=== PATIENT | male | born 1985 ===

== ENCOUNTER 2017-04-26 20:03 | Emergency (ER) | payer OTHER ==
[2017-04-26 20:08] VITALS: BMI 28.3
[2017-04-26 20:12] VITALS: BP 119/80; PULSE 67; RESP 19; TEMP 98.6; O2SAT 97
[2017-04-26] MEDS ORDERED: Tmp-Smz 800 mg-160 mg DS Tab PO STA (20:19)
--- NOTE | 2017-04-26 20:28 | ED PDOC ---
Arrival/HPI - General Historian: Patient <Martin Clemente - Last Filed: 04/26/17 20:24> <Kirk Spear - Last Filed: 04/26/17 22:29> - General Chief Complaint: Finger,Hand,&Wrist Time Seen by Provider: 04/26/17 20:19 - History of Present Illness Narrative History of Present Illness (Text): 04/26/17 20:24 31 y/o male, no pmh, nkda, c/o rt. hand 2nd digit skin redness and pain x 1 week with more painful today. Pt. stated that the finger is red, admits washing dishes without using the gloves, no numbness or tingling, no difficulty moving or bending the finger, no night sweat, unable to see the pmd due to the limited appointment, no dizziness, no chest pain or shortness of breath, no other medical or psychological complaints. (Martin Clemente) Past Medical History - Provider Review Nursing Documentation Reviewed: Yes - Infectious Disease Hx of Infectious Diseases: None - Tetanus Immunization Tetanus Immunization: Unknown - Past Medical History Past Medical History: No Previous - Cardiac Hx Cardiac Disorders: No - Pulmonary Hx Respiratory Disorders: No - Neurological Hx Neurological Disorder: No - HEENT Hx HEENT Disorder: No - Renal Hx Renal Disorder: No - Endocrine/Metabolic Hx Endocrine Disorders: No - Hematological/Oncological Hx Blood Disorders: No - Integumentary Hx Dermatological Disorder: No - Musculoskeletal/Rheumatological Hx Musculoskeletal Disorders: Yes Hx Back Pain: Yes - Gastrointestinal Hx Gastrointestinal Disorders: No - Genitourinary/Gynecological Hx Genitourinary Disorders: No - Psychiatric Hx Psychophysiologic Disorder: No Hx Depression: No Hx Emotional Abuse: No Hx Physical Abuse: No Hx Substance Use: No - Past Surgical History Past Surgical History: No Previous - Surgical History Other/Comment: epidural shots for pain - Anesthesia Hx Anesthesia: No - Suicidal Assessment Feels Threatened In Home Enviroment: No <Martin Clemente - Last Filed: 04/26/17 20:24> Family/Social History - Physician Review Nursing Documentation Reviewed: Yes Family/Social History: Unknown Family HX Smoking Status: Light Smoker < 10 Cigarettes Daily Hx Alcohol Use: Yes Hx Substance Use: No Hx Substance Use Treatment: No <Martin Clemente - Last Filed: 04/26/17 20:24> Allergies/Home Meds <Martin Clemente - Last Filed: 04/26/17 20:24> <Kirk Spear - Last Filed: 04/26/17 22:29> Allergies/Adverse Reactions: Allergies No Known Allergies Allergy (Verified 04/26/17 20:08) Home Medications: Home Meds Medication Instructions Recorded Confirmed oxyCODONE [oxyCODONE Immediate 15 mg PO TID 04/26/17 04/26/17 Release Tab] Review of Systems - Review of Systems Constitutional: absent: Fatigue, Fevers Eyes: absent: Vision Changes ENT: absent: Hearing Changes Respiratory: absent: SOB, Cough Cardiovascular: absent: Chest Pain Gastrointestinal: absent: Abdominal Pain, Nausea, Vomiting Skin: Rash, Skin Lesions, Cellulitis. absent: Pruritis, Laceration, Abscess, Ulcer Neurological: absent: Headache, Dizziness, Speech Changes <Martin Clemente - Last Filed: 04/26/17 20:24> Physical Exam Vital Signs Reviewed: Yes Temperature: Afebrile Blood Pressure: Normal Pulse: Regular Respiratory Rate: Normal Appearance: Positive for: Well-Appearing, Non-Toxic, Comfortable Pain Distress: Moderate Mental Status: Positive for: Alert and Oriented X 3 - Systems Exam Head: Present: Atraumatic, Normocephalic Pupils: Present: PERRL Extroacular Muscles: Present: EOMI Conjunctiva: Present: Normal Mouth: Present: Moist Mucous Membranes Neck: Present: Normal Range of Motion Respiratory/Chest: Present: Clear to Auscultation, Good Air Exchange. No: Respiratory Distress, Accessory Muscle Use Cardiovascular: Present: Regular Rate and Rhythm, Normal S1, S2. No: Murmurs Abdomen: Present: Normal Bowel Sounds. No: Tenderness, Distention, Peritoneal Signs Back: Present: Normal Inspection Upper Extremity: Present: Normal Inspection, Other (Rt. hand 2nd digit dorsum aspect of the DIPJ visible redness approx. 1.5cm diameter with mild lichenification white patchy color noted, FROM without limitation, sensation intact, motor 5/5, +radial pulse, capillary refill< 2 seconds, neurovasular intact. ). No: Cyanosis, Edema Lower Extremity: Present: Normal Inspection. No: Edema Neurological: Present: GCS=15, Speech Normal, Motor Func Grossly Intact, Gait Normal, Memory Normal Skin: Present: Warm, Dry, Normal Color. No: Rashes Psychiatric: Present: Alert, Oriented x 3, Normal Insight, Normal Concentration <Martin Clemente - Last Filed: 04/26/17 20:24> Medical Decision Making <Martin Clemente - Last Filed: 04/26/17 20:24> <Kirk Spear - Last Filed: 04/26/17 22:29> ED Course and Treatment: 04/26/17 20:27 -I explained to the patient that this likely bacterial infection with possibly underlying viral skin infection, he is unable to see his own pmd within 2-3 days , advised him to come back in the ER in 3 days. -Discharge home with keflex, bactrim ds, motrin, avoid rubbing or scratching the skin, good hygiene, follow up with your own pmd and hand specialist within 3 days or return to the ER in 3 days for wound check (04/30/2017), return to the ER sooner for any new or worsening signs or symptoms. (Martin Clemente) - Medication Orders Current Medication Orders: Discontinued Medications Cephalexin Monohydrate (Keflex) 500 mg PO STAT STA PRN Reason: Protocol Stop: 04/26/17 20:20 Last Admin: 04/26/17 20:42 Dose: 500 mg Ibuprofen (Motrin Tab) 600 mg PO STAT STA Stop: 04/26/17 20:20 Last Admin: 04/26/17 20:42 Dose: 600 mg Trimethoprim/Sulfamethoxazole (Bactrim Ds Tab) 1 tab PO STAT STA PRN Reason: Protocol Stop: 04/26/17 20:20 Last Admin: 04/26/17 20:40 Dose: 1 tab - PA / [employer] / Resident Statement GERMAN has reviewed & agrees with the documentation as recorded. <Martin Clemente - Last Filed: 04/26/17 20:24> - PA / [employer] / Resident Statement GERMAN has reviewed & agrees with the documentation as recorded. <Kirk Spear - Last Filed: 04/26/17 22:29> Disposition/Present on Arrival - Present on Arrival Any Indicators Present on Arrival: No History of DVT/PE: No History of Uncontrolled Diabetes: No Urinary Catheter: No History of Decub. Ulcer: No History Surgical Site Infection Following: None - Disposition Have Diagnosis and Disposition been Completed?: Yes Disposition Time: 20:29 Patient Plan: Discharge <Martin Clemente - Last Filed: 04/26/17 20:24> <Kirk Spear - Last Filed: 04/26/17 22:29> - Disposition Diagnosis: Cellulitis Disposition: HOME/ ROUTINE Condition: GOOD Discharge Instructions (ExitCare): Cellulitis (ED) Additional Instructions: Discharge home with keflex, bactrim ds, motrin, topical acyclovir, avoid rubbing or scratching the skin, good hygiene, follow up with your own pmd and hand specialist within 3 days or return to the ER in 3 days for wound check (10/2016), return to the ER sooner for any new or worsening signs or symptoms. Prescriptions: Acyclovir 5% [Zovirax 5% Oint] 1 appful TP QID #1 tube Cephalexin [cephalexin] 500 mg PO QID #20 cap Ibuprofen [Motrin Tab] 600 mg PO QID PRN #24 tab PRN Reason: Other Sulfamethoxazole/Trimethoprim [Bactrim Ds Tablet] 1 each PO BID #20 tablet Referrals: David Rios III, MD [Medical Doctor] - Follow up with primary David Choi MD [Staff Provider] - Follow up with primary Forms: WORK NOTE
== END 2017-04-26 21:01 | disposition home or self-care (01) ==
LOC: ED 20:03
DX: L03.113 Cellulitis of right upper limb (principal); F17.210 Nicotine dependence, cigarettes, uncomplicated